=== PATIENT | male | born 1990 | race Caucasian/White ===

== ENCOUNTER 2024-09-23 08:38 | Emergency (ER) | payer OTHER, SELFPAY ==
[2024-09-23 08:48] VITALS: BP 123/77
--- NOTE | 2024-09-23 10:10 | ED.GENMED ---
History of Present Illness
General
Chief Complaint: Skin Problem
Source: patient
Exam Limitations: none
Time Seen by Provider: 09/23/24 09:29
Nursing documentation reviewed up to this point in time: agreed with
History of Present Illness
History of Present Illness:
Patient is a 34-year-old male who presents to the ER complaining of right fourth finger pain redness and swelling for the past week. Patient denies any injury. He Does report he bites his cuticles. He denies any fever or chills.
Review of Systems
Review of Systems
Allergies reviewed?: Yes
All Other Systems: ROS reviewed and negative except as documented in HPI and ROS
Constitutional: Reports no symptoms; Denies fever
Musculoskeletal: Reports other (Right fourth finger redness and swelling around cuticle distal phalanx)
Skin: Reports no symptoms
Neurological: Reports no symptoms
Psychiatric: Reports no symptoms
Phy Exam
General Physical Exam
General Presentation: no apparent distress
General age: appears stated age
General Skin: warm and dry
General Habitus: normal
General Mental: alert
General Hydration: appears well hydrated
Neurological Exam
Neurological Exam: alert and oriented x3
Musculoskeletal Exam
Musculoskeletal Exam: other (right distal fourth phalanx with redness swelling around cuticle visible small pus to medial distal cuticle region, able to flex and extend)
Skin Exam
Skin Exam: normal color and warm/dry
Psychiatric Exam
Psychiatric Exam: normal mood/affect
Course
Orders/Labs/Results
Orders:
Orders
09/23/24 10:59
Cephalexin Monohydrate [Keflex] 500 mg PO NOW STA
09/23/24 11:00
Wound Culture [Wound/Abscess/Other Culture] Urgent
PEACE Source: Finger
Specimen Description: Right
Vital Signs
Initial and Last Documented VS:
Initial Vital Signs
Temp Pulse Resp BP Pulse Ox
98.7 F 64 14 123/77 100
09/23/24 08:48 09/23/24 08:48 09/23/24 08:48 09/23/24 08:48 09/23/24 08:48
Last Documented Vital Signs
Temp Pulse Resp BP Pulse Ox
98.7 F 64 14 123/77 100
09/23/24 08:48 09/23/24 08:48 09/23/24 08:48 09/23/24 08:48 09/23/24 08:48
Procedures
Other
Indication for procedure:: Paronychia right fourth finger
Procedure completed by: Myself
Additional Procedure:
Verbal consent obtained patient was anesthetized with digital block 1% lidocaine approximately 2 and half cc. Betadine prep was done first and medication was injected to anesthetize area. Using 11 blade scalpel after Betadine cleansing and prep I
was able to insert scalpel under cuticle area and expressed a moderate amount of purulent drainage. cx obtained.
MDM/Problems Addressed
Differential Diagnosis Includes:
Not limited to paronychia, finger infection
MDM/Problems Addressed:
Symptoms are consistent with simple paronychia I did drain this with a moderate/large amount of purulent drainage and return, successful drainage. antibiotics were ordered; discussed hot water soaks close outpatient wound check return if any
worsening of symptoms
*Critical Care Note
Total Time (30-74mins, 75-104mins- exclusive of procedures): Not Applicable
ED Attending Note
-
Portions of this chart may have been created with voice recognition software.� Occasional wrong word or��sound alike� substitutions may have occurred due to the inherent limitations of voice recognition software.
Discharge Plan
Departure
Patient Disposition: Home (Routine Discharge)
Date of Disposition: 09/23/24
Time of Disposition: 11:01
Patient with high blood pressure during this ER visit?: No
Condition: Fair
Covid-19: Not Applicable
Discharge Problem:
Paronychia
Instructions: Paronychia - ED discharge instructions
Prescriptions:
New
cephalexin 500 mg capsule
500 mg PO Q6H Qty: 28 0RF
No Action
sulfacetamide sodium 1 DROP drops
1 drp OPHTHALMIC Q3 Qty: 1 0RF
Rx Instructions:
1 to 2 drops into right eye every 3 hours while awake for the next 7 days
Referrals:
Ayaan Gallardo DO [Family Provider, Family Practice]
Activity Restrictions/Additional Instructions:
As discussed, soak finger several times a day in warm /hot water. Antibiotics as directed for the next 7 days. Follow-up with family doctor in the next several days for reevaluation of symptoms .
return if any worsening of symptoms of increased pain swelling redness drainage fever chills. antibiotic was sent to pharmacy.
Interventions
Interventions:
*Risk Screen - Suicide Last Done: 09/23/24 08:52
*General Assessment Last Done: 09/23/24 10:07
*Neglect/Abuse Screening Last Done: 09/23/24 08:52
*ED- Fall Risk Assessment Last Done: 09/23/24 10:07
*ED COVID-19 Vaccine History Last Done: 09/23/24 10:07
ED-Skin Assessment Last Done: 09/23/24 10:15
Discharge Date and Time
Print Language: MALTESE
[2024-09-23] MEDS: KEFLEX 500 MG PO (11:19)
[2024-09-23 11:22] VITALS: BMI 31.0
== END 2024-09-23 11:41 | disposition home or self-care (01) ==
LOC: EMR 08:38
PROVIDERS: EMERGENCY PHYSICIAN Student in an Organized Health Care Education/Training Program; FAMILY PHYSICIAN Family Medicine
DX: L03.011 Cellulitis of right finger (principal)
CPT/HCPCS: 10060; 99283; 87070; 87077; 87186; 87205